=== PATIENT | female | born 1995 | race Caucasian/White ===

== ENCOUNTER 2021-04-24 06:58 | Emergency (ER) | payer BC ==
[~2021-04-24] VITALS: Ht 162.6 cm; Wt 81.7 kg
[~2021-04-24 06:58] MED LIST: BIRTH CONTROL; CIPRO250 MG PO; IBUPROFEN 800800 M1 PO; VISTARIL 25 MG25 M1 OR; ZOFRAN4 MG PO
[2021-04-24 08:02] VITALS: BP 119/80
[2021-04-24] MEDS ORDERED: HYDROCODON-ACE1 EAC7 PO (08:53)
[2021-04-24] MEDS ORDERED: FLEXERIL PO (08:53)
== END 2021-04-24 08:58 | disposition home or self-care (01) ==
LOC: M.ERS 06:58
DX: S39.012A Strain of muscle, fascia and tendon of lower back, initial encounter (principal); Z90.89 Acquired absence of other organs; Z79.899 Other long term (current) drug therapy; V89.2XXA Person injured in unspecified motor-vehicle accident, traffic, initial encounter; Y93.89 Activity, other specified; Y92.89 Other specified places as the place of occurrence of the external cause; Y99.8 Other external cause status